=== PATIENT | female | born 1995 | race African-American/Black ===

== ENCOUNTER 2016-12-29 21:39 | Emergency (ER) | payer SELFPAY ==
[2016-12-29 22:07] LABS: APPEARANCE SLT CLOUDY (CLEAR); BILIRUBIN NEGATIVE (NEGATIVE); COLOR YELLOW (YELLOW); GLUCOSE NEGATIVE (NEGATIVE); KETONE NEGATIVE (NEGATIVE); NITRITE NEGATIVE (NEGATIVE); PROTEIN NEGATIVE (NEGATIVE); UROBILINOGEN NORMAL (NORMAL)
[2016-12-29 22:09] LABS: WHITE CELLS - URINE 0-5 /hpf (0-5)
[2016-12-29 22:10] LABS: HCG URINE NEGATIVE (NEGATIVE)
[2016-12-29 22:24] LABS: UDS - AMPHET POSITIVE QUAL (NEGATIVE); UDS - BARB NEGATIVE QUAL (NEGATIVE); UDS - BENZO NEGATIVE QUAL (NEGATIVE); UDS - COCAINE NEGATIVE QUAL (NEGATIVE); UDS - OPIATE NEGATIVE QUAL (NEGATIVE); UDS - PCP NEGATIVE QUAL (NEGATIVE); UDS - THC POSITIVE QUAL (NEGATIVE)
[2016-12-29 22:56] LABS: BASOPHILS 0.8 % (0-2); EOSINOPHILS 0.3 % (0-7); HEMATOCRIT 36.9 % (36.0-48.0); HEMOGLOBIN 12.3 g/dL (12-16); IMMATURE GRANULOCYTES 0.2 % (0-5); LYMPHOCYTES 30.4 % (15-50); MCH 29.1 pg (26.0-34.0); MCHC 33.3 g/dL (31.0-37.0); MCV 87.2 fL (80.0-100.0); MONOCYTES 5.4 % (2-11); NEUTROPHILS 62.9 % (40-80); PLATELET COUNT 286 10x3/uL (130-400); RBC 4.23 10x6/uL (4.00-5.40); RDW 17.6 % (11.5-14.5); WBC 6.3 10x3/uL (4.8-10.8)
[2016-12-29 23:12] LABS: ALBUMIN 3.7 g/dL (3.4-5.0); ANION GAP 16.1 mmol/L (8-16); CALCIUM 9.2 mg/dL (8.5-10.1); CARBON DIOXIDE 23.6 mmol/L (21.0-32.0); POTASSIUM - SERUM 3.7 mmol/L (3.5-5.1); PROTEIN - SERUM 8.4 g/dL (6.4-8.2)
== END 2016-12-30 02:41 | disposition short-term general hospital (02) ==
LOC: D.ER 21:39
PROVIDERS: Emergency Medicine
DX: R45.851 Suicidal ideations (principal); F33.9 Major depressive disorder, recurrent, unspecified; F17.200 Nicotine dependence, unspecified, uncomplicated

== ENCOUNTER 2017-03-19 15:55 | Emergency (ER) | payer MEDICAID | END 2017-03-19 18:42 | disposition home or self-care (01) | LOC: D.ER 15:55 | DX: J11.1 Influenza due to unidentified influenza virus with other respiratory manifestations (principal); F17.200 Nicotine dependence, unspecified, uncomplicated ==

== ENCOUNTER 2018-04-11 18:34 | Emergency (ER) | payer MEDICAID ==
[~2018-04-11] VITALS: Ht 172.7 cm; Wt 113.6 kg
[2018-04-11 18:38] VITALS: Ht 172.7 cm; Wt 113.6 kg
[2018-04-11] MEDS ORDERED: CIPRO500 MG PO (22:04)
[2018-04-11 22:33] VITALS: BP 132/88
== END 2018-04-11 22:37 ==
LOC: D.ER 18:34
DX: R45.851 Suicidal ideations (principal); R44.0 Auditory hallucinations; F19.10 Other psychoactive substance abuse, uncomplicated